=== PATIENT | male | born 1975 ===

== ENCOUNTER 2016-09-16 06:06 | Day surgery (SDC) | payer OTHER ==
[2016-09-16 06:37] VITALS: BMI 29.4
[2016-09-16] MEDS ORDERED: Lactated Ringer's 1,000 ML IV ONE (06:56)
[2016-09-16] MEDS ORDERED: methylPREDNISolone Depo 80 mg/ml Inj ONE (07:56)
[2016-09-16] MEDS ORDERED: Bupivacaine HCl 0.25% PF (30 ml) Inj ONE (07:57)
[2016-09-16] MEDS ORDERED: Iohexol 300 10 ML ONE (07:57)
[2016-09-16] MEDS ORDERED: Lidocaine 1% Inj (20ml) ONE (07:58)
[2016-09-16] MEDS ORDERED: Bupivacaine HCl 0.25% PF (10 ml) Inj ONE (08:10)
[2016-09-16] MEDS ORDERED: Propofol 10 mg/ml Inj (20 ML) ONE (08:30)
[2016-09-16] MEDS ORDERED: Lidocaine 1% Inj (20ml) IJ ONE (08:44)
[2016-09-16] MEDS ORDERED: methylPREDNISolone Depo 80 mg/ml Inj IM ONE (08:44)
[2016-09-16] MEDS ORDERED: Iohexol 300 10 ML IJ ONE (08:45)
[2016-09-16 09:27] VITALS: RESP 18
[2016-09-16] MEDS ORDERED: Lactated Ringer's 1,000 ML IV SCH (09:45)
[2016-09-16 10:08] VITALS: BP 107/69; PULSE 60; TEMP 97.2; O2SAT 98
--- NOTE | 2016-09-16 10:46 | OP ---
PROCEDURE DATE: 09/16/2016 ANESTHESIOLOGIST: Dr. Garcia. SURGEON: Dr. Pereyra. PREOPERATIVE DIAGNOSIS: Lumbar radiculopathy. POSTOPERATIVE DIAGNOSIS: Lumbar radiculopathy. PROCEDURE: Left transforaminal epidural at left L4 and L5 nerve roots. COMPLICATIONS: None. EXPECTED BLOOD LOSS: None. TECHNIQUE: After informed consent was obtained, the patient was brought to the OR and placed on the table in the prone position. All pressure points were padded, and sedation was administered by anesthesia. The lumbosacral spine was then prepped with iodine x 3 and draped in the normal sterile fashion. The x- ray was used in the AP and oblique views to guide the needle. Next, 1 mL of 1% lidocaine was used after the L4 vertebra was identified. X-ray was placed in the oblique view. A 22 gauge 3-1/2 inch spinal needle was advanced under oblique x-ray reviewed heading towards the 6 o'clock position of the left L4 pedicle. There was no paresthesia during placement of the needle. After entry into the transforaminal epidural space, there was negative aspiration for heme or CSF; subsequently omnipaque 300 contrast dye--1 cc--was used to delineate the epidural space. The patient had no paresthesia during the procedure. After negative aspiration for heme or CSF, 2 mL of 0.5% lidocaine and Depo- Medrol was easily instilled at this level. This procedure was repeated for the left L5 transverse transforaminal epidural space. The patient was brought to stage II recovery room with stable vital signs and bilateral lower extremity motor and sensory intact. 80 mg depomedrol was used for case. Venancio Pereyra MD cc: [id number] TT: 09/16/2016 10:45:14 sathish ARENAS
--- NOTE | 2016-09-17 15:12 | RAD ---
PROCEDURE: Lumbar Epidural Injection Fluoroscopy up to 1 hr. HISTORY: EPIDURAL TECHNIQUE: Fluoroscopic guidance was provided for epidural injection for pain management purposes. FINDINGS: Submitted images from the current procedure: 3.0. Total fluoroscopic time (continuous mode) utilized during the procedure: 37.8 seconds. IMPRESSION: Fluoroscopic guidance provided for epidural injection. Please refer procedure. COMPARISON: None
== END 2016-09-16 11:12 | disposition home or self-care (01) ==
LOC: H.OPSURG 06:06
PROVIDERS: ATTEND Anesthesiology Pain Medicine
DX: M54.16 Radiculopathy, lumbar region (principal)

== ENCOUNTER 2016-10-01 08:14 | Day surgery (SDC) | payer OTHER ==
[2016-10-01] MEDS ORDERED: Lactated Ringer's 500 ML IV ONE (10:17)
[2016-10-01 10:25] VITALS: TEMP 96.9
[2016-10-01] MEDS ORDERED: Propofol 10 mg/ml Inj (20 ML) ONE (11:18)
[2016-10-01 11:55] VITALS: BP 104/65; PULSE 62; RESP 13; O2SAT 99
== END 2016-10-01 13:00 | disposition home or self-care (01) ==
LOC: H.ENDO 08:14
PROVIDERS: ATTEND Internal Medicine Gastroenterology
DX: R10.13 Epigastric pain (principal); K64.8 Other hemorrhoids; K25.9 Gastric ulcer, unspecified as acute or chronic, without hemorrhage or perforation